=== PATIENT | male | born 1960 | race Caucasian/White ===

== ENCOUNTER 2018-10-29 22:21 | Emergency (ER) | payer OTHER ==
[2018-10-29 22:28] VITALS: TEMP 98; BMI 30.7
--- NOTE | 2018-10-30 00:59 | PDOC ---
History of Present Illness - General Chief Complaint: Blood Pressure Problem Stated Complaint: HIGH BP Time Seen by Provider: 10/30/18 00:21 History Source: Patient Exam Limitations: No Limitations - History of Present Illness Initial Comments: 10/30/18 00:50 58 YOM with NIDDM who p/w low energy and "feeling down" for the past month but worsened over the past 24 hours. He notes being stressed about his daughter's health problems, and this has made him dwell on his own health. He notes having gone to the pharmacy to check his blood pressure and it was higher than normal at 148 systolic. He additionally notes mild pounding heartbeat which comes along when he is stressed and then resolves. He has had mild fleeting headache but nothing out of the ordinary for his baseline. Past History - Past Medical History Allergies/Adverse Reactions: Allergies Allergy/AdvReac Type Severity Reaction Status Date / Time No Known Allergies Allergy Verified 10/29/18 22:28 Home Medications: Ambulatory Orders Metformin HCl [Metformin HCl ER] 500 mg PO DAILY 10/30/18 COPD: No Diabetes: Yes (NIDDM) - Suicide/Smoking/Psychosocial Hx Smoking History: Never smoked Have you smoked in the past 12 months: No Information on smoking cessation initiated: No Hx Alcohol Use: No Drug/Substance Use Hx: No Review of Systems - Review of Systems Able to Perform ROS?: Yes Comments:: 10/30/18 01:00 GEN: fatigue, no fever, chills, malaise, or weight change HEENT: no ear pain, sore throat, vision change, or eye pain CV: no chest pain, palpitations, lightheadedness, syncope, or edema RESP: no cough, wheezing, or SOB GI: no abdominal pain, nausea, vomiting, diarrhea, constipation, or white/black/ bloody stool : no dysuria, hematuria, incontinence, retention, bleeding, or discharge MSK: no neck/back pain, muscle weakness/pain, or joint swelling/pain NEURO: mild headache, no seizure, vertigo, numbness, tingling, or focal weakness PSYCH: "feeling down", no SI, no HI, no substance use, no behavior change SKIN: no jaundice, no rash ROS otherwise negative except as noted in HPI *Physical Exam - Vital Signs Last Vital Signs Temp Pulse Resp BP Pulse Ox 98.0 F 75 18 148/82 100 10/29/18 22:26 10/29/18 22:26 10/29/18 22:26 10/29/18 22:26 10/30/18 00:16 - Physical Exam Comments: 10/30/18 01:23 GENERAL: a bit tearful but well-appearing, A/Ox4, no distress, answers questions appropriately HEENT: b/l scleral injection (rubbing eyes and a bit tearful during exam), PERRLA, EOMI, moist mucous membranes NECK/BACK: no midline ttp, no spinal stepoff or deformity, no hematoma, full ROM , neck supple CARDIOVASCULAR: regular rate/rhythm, normal S1S2, no MGR, strong peripheral pulses, capillary refill <2 seconds, extremities wwp, no edema LUNGS/RESPIRATORY: no respiratory distress, CTAB GI/ABDOMEN: protuberant but not distended, symmetric [id number], normoactive BS, soft, no ttp, no midline pulsatile masses : no CVA tenderness EXTREMITIES: no muscle atrophy, no acute deformity, no edema SKIN: warm and dry, no pallor, no jaundice, no rash, no bruising, no skin breakdown, no cuts, no lesions NEUROLOGICAL: GCS 15, CN II-XII grossly intact, 5/5 strength proximally and distally, no facial droop Moderate Sedation - Procedure Monitoring Vital Signs: Procedure Monitoring Vital Signs Temperature 98.0 F 10/29/18 22:26 Pulse Rate 75 10/29/18 22:26 Respiratory Rate 18 10/29/18 22:26 Blood Pressure 148/82 10/29/18 22:26 O2 Sat by Pulse Oximetry (%) 100 10/30/18 00:16 *DC/Admit/Observation/Transfer Diagnosis at time of Disposition: Fatigue Qualifiers: Fatigue type: unspecified Qualified Code(s): R53.83 - Other fatigue - Discharge Dispostion Disposition: HOME Condition at time of disposition: Stable Decision to Admit order: No - Referrals Referrals: Sherron Best MD [Primary Care Provider] - Alona Pastor MD [Staff Physician] - - Patient Instructions Additional Instructions: You were seen in the ER for fatigue and concerns for blood pressure problems. We did an exam, vital signs, and an electrocardiogram, which all looked normal. After our assessment, we do not believe you are having a medical emergency at this time, and we believe you are safe to go home. Please follow up with your primary care provider in 1-3 days. Please also follow up with our psychiatry clinic if you feel this would help (we believe it may). We are giving you referral information for this clinic. Call their clinic, tell them you were seen in the ER, and tell them you need a follow-up. If you have any new or worsening symptoms, please come back to the ER at any time (24 hours a day). If you are having severe or life threatening symptoms, or symptoms that make it unsafe to drive or have someone drive you, please call 911. - Post Discharge Activity
[2018-10-30 01:01] VITALS: BP 131/82; PULSE 65
--- NOTE | 2018-10-30 01:09 | PDOC ---
Attending Attestation - Resident Resident Name: TaiAlejandra - ED Attending Attestation I have performed the following: I have examined & evaluated the patient, The case was reviewed & discussed with the resident, I agree w/resident's findings & plan, Exceptions are as noted - HPI HPI: 10/30/18 01:16 58yo M hx IDDM on metformin presents to the ED with concern for elevated BP. Pt reports checking his BP at a pharmacy earlier today and found it to be in the 150s systolic which prompted his ED visit. Currently has no symptoms but admits to feeling down recently due his daughter being sick. He notes feeling his heart skipped a beat earlier today, but denies palpitations. Currently denies dizziness, headache, focal weakness/numbness, cp, sob, abd pain, n/v/d, LE edema. BP in the ED in 140s and 130s systolic on recheck. Pt states "I am good" and requests DC home. - Physicial Exam PE: 10/30/18 01:20 GENERAL: Awake, alert, and fully oriented, in no acute distress, well appearing EYES: PERRLA, EOMI, sclera anicteric, conjunctiva clear ENT: Oropharynx clear without exudates. Moist mucosa NECK: Normal ROM, supple, no lymphadenopathy, JVD, or masses LUNGS: Breath sounds equal, clear to auscultation bilaterally. No wheezes, and no crackles HEART: Regular rate and rhythm, normal S1 and S2, no murmurs, rubs or gallops ABDOMEN: Soft, nontender, normoactive bowel sounds. No guarding, no rebound. No masses EXTREMITIES: Normal range of motion, no edema. No clubbing or cyanosis. No cords, erythema, or tenderness NEUROLOGICAL: Normal speech, cranial nerves intact, negative pronator drift, 5/ 5 strength in all 4 extremities, normal sensation to light touch in all 4 extremities, normal cerebellar exam, normal gait, normal tone SKIN: Warm, Dry, normal turgor, no rashes or lesions noted. - Medical Decision Making 10/30/18 01:32 58yo M hx NIDDM pesents to the ED with asymptomatic HTN. BP mildly elevated here to 130s systolic, otherwise vitals wnl. Exam wnl. Impression: hypertensive urgency Pt very well appearing, requests DC home Offered labs but states he just had labs checked with Dr. Sherron Best which were normal EKG non ischemic Return precautions given I discussed the physical exam findings, ancillary test results and final diagnoses with the patient. I answered all of the patient's questions. The patient was satisfied with the care received and felt comfortable with the discharge plan and treatment plan. The patient will call their primary care physician within 24 hours to arrange follow-up and will return to the Emergency Department with any new, persistent or worsening symptoms. Heart Score/ECG Review #1 10/30/18 01:31 Twelve-lead EKG was performed and reviewed by me. Normal sinus rhythm, rate 61. Normal axis and intervals. No ST elevations or T-wave inversions.
--- NOTE | 2018-10-30 10:58 | EKG ---
Test Reason : Blood Pressure : / mmHG Vent. Rate : 065 BPM Atrial Rate : 065 BPM P-R Int : 146 ms QRS Dur : 082 ms QT Int : 390 ms P-R-T Axes : 036 022 023 degrees QTc Int : 405 ms NORMAL SINUS RHYTHM NORMAL ECG NO PREVIOUS ECGS AVAILABLE Confirmed by MARLIN DREW, AICHA ([id number]) on 10/30/2018 10:58:23 AM Referred By: Confirmed By:AICHA ISAAC MD
== END 2018-10-30 01:38 | disposition home or self-care (01) ==
LOC: JER 22:21
DX: I10 Essential (primary) hypertension (principal); E11.9 Type 2 diabetes mellitus without complications; Z79.84 Long term (current) use of oral hypoglycemic drugs
CPT/HCPCS: 93005; 93010; 99284-25

== ENCOUNTER 2019-01-07 04:50 | Emergency (ER) | payer OTHER ==
[2019-01-07 05:18] VITALS: BP 132/75; PULSE 81; TEMP 100.7; BMI 32.4
--- NOTE | 2019-01-07 05:26 | PDOC ---
Attending Attestation - Resident Resident Name: Antonia Morgan - ED Attending Attestation I have performed the following: I have examined & evaluated the patient, The case was reviewed & discussed with the resident, I agree w/resident's findings & plan - HPI HPI: 01/07/19 06:16 58-year-old male with persistent fevers, seen at an urgent care and influenza negative, patient states he has had a cough with thick white sputum. He denies headache neck pain chest pain back pain nausea vomiting diarrhea or urinary symptoms. - Physicial Exam PE: 01/07/19 06:17 Agree with resident's exam - Medical Decision Making 01/07/19 06:17 58-year-old male with fever and cough Chest x-ray shows no focal infiltrate Patient is asymptomatic at this time He was recommended to follow up with his primary care physician and advised that should he develop any new or worsening symptoms to return to the emergency department for repeat evaluation
[2019-01-07] MEDS ORDERED: ACETAMINOPHEN 325 MG TABLET (FP) PO ONE (05:34)
[2019-01-07] MEDS ORDERED: ACETAMINOPHEN 325 MG TABLET (FP) ONE (05:35)
--- NOTE | 2019-01-07 05:47 | PDOC ---
History of Present Illness - General Chief Complaint: Cold Symptoms Stated Complaint: FEVER Time Seen by Provider: 01/07/19 05:24 - History of Present Illness Initial Comments: Travis Johnson is a 58yo man with a PMH of NIDDM who presents with 3 days of general malaise and subjective fever. He had headache and body aches 2- 3 days ago, but these have resolved. He was concerned about the fever and was seen at urgent care yesterday. He states that they did a flu test that was negative. He was told that he had a virus. He was told to drink a lot of fluids and take Tylenol or Advil for the fever. He followed these directions and took 600mg ibuprofen before bed. He was concerned because overnight he started sweating and felt overheated. He thought he should have been prescribed a medication from urgent care to treat his fever, so he presented to the ED. Past History - Past Medical History Allergies/Adverse Reactions: Allergies Allergy/AdvReac Type Severity Reaction Status Date / Time No Known Allergies Allergy Verified 01/07/19 05:17 Home Medications: Ambulatory Orders metFORMIN HCL [Metformin ER Osmotic] 500 mg PO DAILY 10/30/18 COPD: No Diabetes: Yes (NIDDM) - Suicide/Smoking/Psychosocial Hx Smoking History: Never smoked Have you smoked in the past 12 months: No Information on smoking cessation initiated: No Hx Alcohol Use: Yes (Social) Drug/Substance Use Hx: No Review of Systems - Review of Systems Comments:: General: +fever, +general malaise, +sweating, +poor appetite. No chills, no weight or appetite change HEENT: No changes in vision, no changes in hearing, + nasal congestion, no sore throat CV: No chest pain, no palpitations, no LE edema Pulm: No SOB, +slight cough, no wheezing GI: No nausea or vomiting, no change in bowel habits, no melena : No frequency, no urgency, no dysuria Musc: No back pain, no joint swelling, no recent injury Skin: No rash, no lesions, no erythema Endo: No excessive thirst, no heat/cold intolerance Heme: No unusual bruising or bleeding, no swollen glands Neuro: No syncope, no numbness/tingling, no focal weakness Vasc: No claudication Psych: No recent change in mood, no SI or HI *Physical Exam - Vital Signs Last Vital Signs Temp Pulse Resp BP Pulse Ox 100.7 F H 81 16 132/75 98 01/07/19 04:50 01/07/19 04:50 01/07/19 04:50 01/07/19 04:50 01/07/19 04:50 - Physical Exam Comments: General: Comfortable, no acute distress HEENT: PERRL, EOMI, MMM, voice normal, normal neck ROM, no LAD. No meningeal signs. Cards: RRR, no murmur appreciated Pulm: Comfortable on room air, clear to auscultation bilaterally Abd: Soft, nontender, nondistended Ext: Atraumatic. No LE edema. ROM intact. Vasc: Extremities WWP Skin: Normal color, no rashes or lesions Neuro: A&Ox3, CN grossly intact, normal speech, motor/sensory grossly intact and symmetric Psych: Mood appropriate to situation Moderate Sedation - Procedure Monitoring Vital Signs: Procedure Monitoring Vital Signs Temperature 100.7 F H 01/07/19 04:50 Pulse Rate 81 01/07/19 04:50 Respiratory Rate 16 01/07/19 04:50 Blood Pressure 132/75 01/07/19 04:50 O2 Sat by Pulse Oximetry (%) 98 01/07/19 04:50 ED Treatment Course - RADIOLOGY Radiology Studies Ordered: Category Date Time Status CHEST PA & LAT [RAD] Stat Radiology 01/07/19 05:33 Ordered Medical Decision Making - Medical Decision Making 01/07/19 05:35 Travis Johnson is a 58yo man with a PMH of NIDDM who presents with 3 days of subjective fever and generalized malaise. He reports mild headaache and body aches initially, but these have resolved. He was seen at urgent care [facility] 12 hours ago where he had a negative influenza swab and was diagnosed with a viral illness. He was concerned that he started sweating overnight after taking 600mg ibuprofen yesterday evening before bed. - Denies any focal symptoms at this time. No sore throat, meningeal signs, significant cough, abdominal pain, or dysuria. - Requesting antibiotics. Advised that antibiotics are not given for fever without symptoms indicating specific illnesses - Reports occasional productive cough. Will obtain CXR to definitely rule out pneumonia. - Temp 100.7. Will give acetaminophen per pt request. 01/07/19 06:19 - CXR completed, reviewed in ED with Dr Doll. No acute or focal abnormalities noted. - Discussed follow up with PMD if symptoms persist for over week. Discussed home care and return precautions. Mr Johnson states understanding and agreement. Discussed with Dr Doll. Antonia Rossmichael PGY1 *DC/Admit/Observation/Transfer Diagnosis at time of Disposition: Viral syndrome - Discharge Dispostion Disposition: HOME Condition at time of disposition: Stable Decision to Admit order: No - Referrals Referrals: Sherron Best MD [Primary Care Provider] - - Patient Instructions Printed Discharge Instructions: DI for Viral Syndrome Additional Instructions: Discharge Instructions: You were seen in the ER for a fever and generally filling ill for the past few days. You reported a negative influenza test completed yesterday, so this was not repeated today. You had a chest xray to make sure there was no serious lung illness, but your xray was normal. Home Care and Follow Up: - Drink plenty of fluids. It is OK if you do not feel like eating much for a few days as long as you stay hydrated - There is nothing dangerous about having a fever up to 102-103F. It is your body's natural response to fighting an infection. You should get a thermometer at home to check your temperature. - You may use 650-1000mg acetaminophen (Tylenol) or 600mg ibuprofen (Advil or Motrin) for pain or discomfort. These may be taken every 6-8 hours if needed. If you have continued discomfort, you may alternate between the two medications every 4 hours. - Follow up with your regular doctor if your symptoms continue for more than a week. - Seek medical care if you have headache with fever and stiff neck, chest pain, difficulty breathing, dehydration (no longer urinating, dry mouth, racing heart ) or any other medical emergency. Instrucciones de descarga: Usted fue atendido en la rod de emergencias por fiebre y en general se enferm wicho los ltimos stallings. Usted inform jam prueba de influenza negativa completada nanda, por lo que no se repiti hoy. Tuvo jam radiografa de trax para asegurarse de que no hubiera jam enfermedad pulmonar grave, tova sevilla radiografa era normal. Atencin domiciliaria y seguimiento: - Beber mucho lquido. Est tamara si no tienes ganas de comer mucho wicho unos stallings, siempre y cuando te mantengas hidratado. - No hay nada peligroso en tener jam fiebre de hasta 102-103F. Es la respuesta natural de sevilla cuerpo para combatir jam infeccin. Debera obtener un termmetro en casa para verificar sevilla temperatura. - Puede usar 650-1000 mg de paracetamol (Tylenol) o 600 mg de ibuprofeno (Advil o Motrin) para el dolor o la molestia. Estos pueden tomarse cada 6-8 horas si es necesario. Si tiene molestias continuas, puede alternar entre los dos medicamentos cada 4 horas. - Andie un seguimiento con sevilla mdico habitual si sima sntomas continan wicho ms de jam semana. - Busque atencin mdica si tiene dolor de eugenio con fiebre y rigidez en el ruby, dolor en el pecho, dificultad para respirar, deshidratacin (ya no orina , boca seca, corazn acelerado) o cualquier otra emergencia mdica. - Post Discharge Activity
== END 2019-01-07 06:47 | disposition home or self-care (01) ==
LOC: JER 04:50
DX: B34.9 Viral infection, unspecified (principal)
CPT/HCPCS: 71046-TC-FY; 99282-25

== ENCOUNTER 2020-01-23 06:26 | Emergency (ER) | payer OTHER ==
[2020-01-23 06:41] VITALS: BP 131/72; PULSE 80; TEMP 97.6; BMI 25.1
[2020-01-23] MEDS ORDERED: ACETAMINOPHEN INJECTION 100 ML IVPB ONE (07:22)
[2020-01-23] MEDS ORDERED: PROPOFOL 1,000,000 MCG/100 ML VIAL ONE (07:33)
[2020-01-23] MEDS ORDERED: PANTOPRAZOLE SODIUM 40 MG VIAL ONE (09:26)
[2020-01-23] MEDS ORDERED: NOREPINEPHRINE BITARTRATE 4 MG/4 ML ML IV ONE ×2 (09:35→09:36)
== END 2020-01-23 09:06 | disposition home or self-care (01) ==
LOC: JER 06:26
PROC: 3E033GC Introduction of Other Therapeutic Substance into Peripheral Vein, Percutaneous Approach (ICD-10-PCS; principal; 2020-01-23)
DX: R06.02 Shortness of breath (principal); B97.29 Other coronavirus as the cause of diseases classified elsewhere
CPT/HCPCS: 96374; 96375; 99284-25